=== PATIENT | female | born 1970 | race Caucasian/White ===

== ENCOUNTER 2017-07-23 07:00 | Day surgery (SDC) | payer OTHER ==
[~2017-07-23 07:00] MED LIST: MACROBID 100 M100 MG PO; TYLENOL-CODEINE1 TAB PO; ULTRACET PO
[2017-07-23] MEDS ORDERED: NAPROXEN SODIU550 MG PO (11:36)
== END 2017-07-23 17:45 | disposition home or self-care (01) ==
LOC: CIR.AMB 07:00
DX: N95.0 Postmenopausal bleeding (principal)